=== PATIENT | male | born 1940 | race Caucasian/White ===

== ENCOUNTER 2017-08-18 22:36 | Emergency (ER) | payer MEDICARE ==
[~2017-08-18] VITALS: Ht 175.3 cm; Wt 97.0 kg
[~2017-08-18 22:36] MED LIST: CRESTOR10 MG OR; NAPROSYN250 MG OR; SKELAXIN800 MG OR
[2017-08-19 00:03] VITALS: BP 178/90
== END 2017-08-19 00:03 | disposition home or self-care (01) ==
LOC: ED 22:36
DX: K05.10 Chronic gingivitis, plaque induced (principal)